=== PATIENT | male | born 1990 | race Caucasian/White ===

== ENCOUNTER 2017-08-30 20:19 | Emergency (ER) | payer OTHER, SELFPAY ==
[2017-08-30 20:20] VITALS: BP 150/74; PULSE 76; RESP 18; TEMP 36.6; O2SAT 98; BMI 22.6
--- NOTE | 2017-08-30 20:35 | RAD_ITS ---
XR Foot Min 3 Views INDICATION: RIGHT FOOT PAIN AFTER STEPPING IN HOLE COMPARISON: None TECHNIQUE: 3 views of the right foot FINDINGS: There is a small minimally displaced avulsion fracture at the lateral base of the right cuboid. Overlying soft tissue swelling is noted. The osseous structures are otherwise intact and well aligned. RAD/Foot min 3 Views IMPRESSION: Minimally displaced avulsion fracture at the lateral base of the right cuboid. at 2052 Reported and signed by: Leeann Colon MD Electronically Signed: Leeann Colon MD at 20:50 EDT Tel , Service support ,
--- NOTE | 2017-08-30 20:46 | ED.DCSUM_ITS ---
- ER Visit Summary Date of Service: 08/30/17 Chief Complaint: Injury to right foot History of Present Illness: The patient is a 26 M who presents because of injury to his right foot. His foot went into a hole. He complains of pain laterally. He localizes the pain in the vicinity of the navicular and cuneiform bone. He denies paresthesia, anesthesia motors. He complains of increased pain with dorsiflexion of the foot. He has minimal pain with weightbearing. He states he injured that foot in the past but never sought medical attention. He has no allergies to medication. Physical Examination: Blood pressure elevated over 150/74. Patient has soft tissue swelling over the navicular cuneiform bone lateral proximal right foot. There is no pain the patient base of the fifth metatarsal there is no pain the patient over the lateral or medial malleolus. Is no laxity with drawer testing. DP PT pulses are palpable. Test Results: Three-view x-ray of the foot reveals a pull off type fracture lateral aspect of the cuneiform bone. Emergency Department Course and Treatment: X-ray to evaluate for fracture Treatment Plan: Postop shoe and referral to Dr. Cory Tidwell. Patient declined pain medicine. Disposition: Discharged to home with friend Impression: Nondisplaced pull off fracture lateral cuneiform bone right foot initial encounter This note was generated with Sossee dictation software. It may contain incorrect words, spelling, and punctuation that were not noted in review of the chart prior to signing ED Disposition - Plan for ED Patient: Disposition: Home or Assisted Living Chief Complaint: Lower Extremity Injury Instructions: ED Fx Foot Referrals: NOT,DEFINED [Primary Care Provider] - Cory Tidwell DO [STAFF PHYSICIAN] - 5-7 Days
== END 2017-08-30 21:16 | disposition home or self-care (01) ==
PROVIDERS: Emergency Provider Emergency Medicine
DX: S92.224A Nondisplaced fracture of lateral cuneiform of right foot, initial encounter for closed fracture (principal); X50.1XXA Overexertion from prolonged static or awkward postures, initial encounter; Y93.9 Activity, unspecified; Y92.89 Other specified places as the place of occurrence of the external cause; Y99.9 Unspecified external cause status
CPT/HCPCS: 73630; 99283

== ENCOUNTER 2020-07-22 12:30 | Outpatient (RCR) | payer OTHER, SELFPAY ==
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
--- NOTE | 2020-07-22 13:49 | HP.PTDCSUM ---
It has been my pleasure to treat MARC WHITE referred by Dr. Kane Oro MD, with the diagnosis of LBP injury for a total of 5 visit(s). Discharge Date: 07/22/20 Please see the following information for a summary of their discharge status. Subjective: More flexibe adn moving easier. still sensitive on lumbar back on R side. Still hurts too sit too long 7/10, gone with stretching. Sleep is OK. Plyng a little volleyball. Busy schedule adn wants to try on own. Has the tools to continue at home. Wants to try and manage at home with his exercise. Nothing scheduled. R LBP Pain Intensity (Out of 10): 0 % Improvement: 70 Objective/Function: Full aROM L/S without pain but pt still mentally hesitant with flexion, still prefers standing and still exhibits kyphosis in thoracic adn lumbar when sitting. Goal 1:: ROM LB WFL and without pain or hesitation Goal Progress: Goal Met Goal 2:: Pt feel pain 75% better adn 1/10 at worst Goal 3:: Oswestry score < 5 Goal Progress: Progressing Goal 4:: Return to sports for patient without pain Goal Progress: Progressing Goal 5:: Ready to sit in airplane for [place] trip Goal Progress: Goal Met Goal 6:: Sit comfortably for reevaluation Goal Progress: Not Progressing Plan: d/c to [facility], pt desire. If there are questions or concerns regarding this patient's physical therapy, please feel free to call me at [phone]. Thank you for the referral of this patient. Sincerely, Leonidas Eli, DPT, OCS, CSCS
== END 2020-07-22 19:00 | disposition home or self-care (01) ==
LOC: PT 12:30
PROVIDERS: PCP Family Medicine; Referring Provider Family Medicine; Visit Provider Family Medicine
DX: S39.92XD Unspecified injury of lower back, subsequent encounter (principal); M54.5 Low back pain
CPT/HCPCS: 97110; 97140; 97162; 97164